=== PATIENT | male | born 2000 | race Caucasian/White ===

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

== ENCOUNTER 2019-05-03 07:09 | Emergency (ER) | payer OTHER ==
[~2019-05-03] VITALS: Ht 185.4 cm; Wt 104.3 kg
--- NOTE | 2019-05-03 14:11 | EKG ---
[facility] [address] [facility] [place] [address] Signed Normal sinus rhythm Incomplete right bundle branch block Nonspecific ST abnormality Abnormal ECG When compared with ECG of 14-JUL-2017 01:51, No significant change was found Confirmed by LISA HURST DO ([id number]) on 05/03/2019 2:11:08 PM Electronically Signed By: LISA HURST DO 05/03/19 1411 PATIENT NAME: BRIAN MCNAMARA Electrocardiogram DATE OF : [birth year] PHYSICIAN: LISA HURST DO REPORT #: [id number] REPORT IS CONFIDENTIAL AND NOT TO BE RELEASED WITHOUT AUTHORIZATION
== END 2019-05-03 10:10 | disposition home or self-care (01) ==
LOC: ED 07:09
DX: R09.1 Pleurisy (principal); J06.9 Acute upper respiratory infection, unspecified; Z88.0 Allergy status to penicillin
CPT/HCPCS: 71046; 80053; 84484; 85025; 85379; 87502; 93005; 93010; 94640; 96361; 96374; 96375; 99284-25; J1885; J2405; J7030

== ENCOUNTER 2023-09-18 11:59 | Emergency (ER) | payer OTHER ==
[~2023-09-18] VITALS: Ht 185.4 cm; Wt 110.9 kg
[2023-09-18] MEDS ORDERED: ALBUTEROL/IPRATROPIUM 3 ML NEB ONE (12:14)
[2023-09-18] MEDS ORDERED: ALBUTEROL/IPRATROPIUM 3 ML NEB INH PRN (12:30)
[2023-09-18 12:48] LABS: BASOPHILS 0.3 % (0-2); EOSINOPHILS 5.3 % (0-6); HEMATOCRIT 50.2 % (35.0-50.0); LYMPHOCYTES 12.9 % (24-44); MCH 31.6 (27-36); MCHC 33.8 g/dl (30-36); MCV 93.5 fl (81-99); MONOCYTES 7.1 % (0-12); NEUTROPHILS 74.4 % (39-80); PLATELET COUNT 147 K/uL (140-440); RBC 5.37 M/ul (4.3-5.7); RDW 13.7 (10.5-15.0)
[2023-09-18 13:05] LABS: ALBUMIN 4.4 g/dL (3.4-5.0); ALBUMIN/GLOBULIN RATIO 1.07 (1.1-2.4); ANION GAP 16.3 (7-21); BILIRUBIN, TOTAL 0.7 ng/dL (0.2-1.0); BUN/CREATININE RATIO 11.01 (6.0-28.6); CALCIUM 8.9 mg/dL (8.5-10.1); CREATININE, SERUM 1.18 mg/dL (0.70-1.30); MAGNESIUM 1.9 mg/dL (1.8-2.4); POTASSIUM 3.3 mmol/L (3.5-5.1); PROTEIN, TOTAL 8.5 g/dL (6.4-8.2)
[2023-09-18] MEDS ORDERED: ALBUTEROL SULFATE 0.083% 3 ML VIAL INH ONE ×2 (13:15→15:30)
[2023-09-18] MEDS ORDERED: methylPREDNISolone SOD SUCC 125 MG/2 ML VIAL IV ONE (13:15)
[2023-09-18 13:34] LABS: INFLUENZA B NAA NEGATIVE (NEGATIVE); RESPIRATORY SYNCYTIAL VIR NAA NEGATIVE (NEGATIVE)
[2023-09-18] MEDS ORDERED: ALBUTEROL2.5 MG/3 M INH (16:58)
[2023-09-18] MEDS ORDERED: PREDNISONE20 MG PO (16:58)
[2023-09-18] MEDS ORDERED: VENTOLIN HFA18 GM INH (16:58)
[2023-09-18 17:05] VITALS: BP 132/90
--- NOTE | 2023-09-20 22:11 | EKG ---
[facility] [address] [facility] [place], [place] [address] Signed Sinus tachycardia Otherwise normal ECG When compared with ECG of 03-MAY-2019 07:54, ST now depressed in Lateral leads Confirmed by ONOFRE COLE MD ([id number]) on 09/20/2023 10:11:39 PM Electronically Signed By: ONOFRE COLE 09/20/23 221 PATIENT NAME: BRIAN MCNAMARA ILEANA Electrocardiogram DATE OF : 89 PHYSICIAN: ONOFRE COLE REPORT #: [id number] REPORT IS CONFIDENTIAL AND NOT TO BE RELEASED WITHOUT AUTHORIZATION
== END 2023-09-18 17:06 | disposition home or self-care (01) ==
LOC: ED 11:59
PROVIDERS: Emergency Medicine
DX: J40 Bronchitis, not specified as acute or chronic (principal); J98.01 Acute bronchospasm; Z88.0 Allergy status to penicillin
CPT/HCPCS: 36415; 71045; 80053; 83735; 84484; 85025; 87502; 93005; 93010; 94640; 96374; 99285-25; 99406; J2919; U0002

== ENCOUNTER 2024-01-22 21:36 | Emergency (ER) | payer SELFPAY ==
[~2024-01-22] VITALS: Ht 185.4 cm; Wt 107.0 kg
[~2024-01-22 21:36] MED LIST changes: +ALBUTEROL2.5 MG/3 M INH; +PREDNISONE20 MG PO; +VENTOLIN HFA18 GM INH
[2024-01-22] MEDS ORDERED: ALBUTEROL/IPRATROPIUM 3 ML NEB INH ONE (22:15)
[2024-01-22] MEDS ORDERED: KETOROLAC TROMETHAMINE 60 MG/2 ML VIAL IM ONE (22:15)
[2024-01-22] MEDS ORDERED: GUAIFENESIN/CODEINE 60 ML HOME.PACK PO ONE (23:15)
[2024-01-22] MEDS ORDERED: methylPREDNISolone 4 MG HOME.PACK PO ONE (23:15)
[2024-01-22] MEDS ORDERED: INHALER, ASSIST DEVICES 1 EACH SPACER MISC ONE (23:15)
[2024-01-22] MEDS ORDERED: ALBUTEROL SULFATE 8 GM HOME.PACK INH ONE (23:15)
[2024-01-22 23:47] VITALS: BP 140/88
== END 2024-01-22 23:47 | disposition home or self-care (01) ==
LOC: ED 21:36
DX: J40 Bronchitis, not specified as acute or chronic (principal); Z88.0 Allergy status to penicillin
CPT/HCPCS: 71045; 94640; 96372; 99283-25; J1885; U0002